=== PATIENT | female | born 1960 | race Caucasian/White ===

== ENCOUNTER → 2017-08-21 | Outpatient (CLI) | payer OTHER ==
[~2017-08-21] MED LIST: GUAI600T33 PO
== END | disposition home or self-care (01) ==
LOC: LAB SHORT 17:51
DX: R30.0 Dysuria (principal)
CPT/HCPCS: 87077; 87086; 87186

== ENCOUNTER → 2019-08-02 | Outpatient (CLI) | payer OTHER | LOC: LAB 10:57 → LAB SHORT 10:57 | DX: R30.0 Dysuria (principal) | CPT/HCPCS: 87077; 87086; 87186 ==

== ENCOUNTER → 2020-03-15 | Outpatient (CLI) | payer OTHER | END | disposition home or self-care (01) | LOC: PLD 08:16 → LAB SHORT 08:16 | DX: D18.09 Hemangioma of other sites (principal); B88.9 Infestation, unspecified; L73.8 Other specified follicular disorders | CPT/HCPCS: 88305 ==

== ENCOUNTER 2023-01-03 08:52 | Day surgery (SDC) | payer OTHER | END 2023-01-05 22:44 | disposition home or self-care (01) | LOC: MOI MAM 08:52 | DX: N63.10 Unspecified lump in the right breast, unspecified quadrant (principal); R92.8 Other abnormal and inconclusive findings on diagnostic imaging of breast | CPT/HCPCS: 19000; 76942 ==

== ENCOUNTER → 2024-10-01 | Outpatient (CLI) | payer OTHER | LOC: LAB 12:42 → LAB SHORT 12:42 | DX: E11.8 Type 2 diabetes mellitus with unspecified complications (principal) | CPT/HCPCS: 83036 ==